=== PATIENT | female | born 2005 | race Two or more races ===

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

== ENCOUNTER 2023-12-03 16:20 | Emergency (ER) | payer OTHER, MEDICAID ==
[~2023-12-03] VITALS: Ht 172.7 cm; Wt 121.3 kg
[2023-12-03] MEDS: IPRATROPIUM BROM 0.5 MG/2.5ML INH SOL NEB ONE (16:37)
[2023-12-03] MEDS: ALBUTEROL SULF 2.5 MG/0.5ML(0.5%) NEB SOLN NEB ONE (16:37)
[2023-12-03 16:52] LABS: Basophils # (auto) 0.1 10 ^3/uL (0-0.2); Basophils % (auto) 0.4 % (0.0-2.0); Eosinophils % (auto) 5.4 % (0.0-7.0); Hematocrit 44.5 % (36.0-46.0); Hemoglobin 15.4 g/dL (12.2-16.2); Lymphocytes # (auto) 2.4 10 ^3/uL (0.4-5.4); Mean Corpuscular Hemoglobin 31.1 pg (28.0-32.0); Mean Corpuscular Hgb Conc. 34.6 g/dL (32.0-36.0); Mean Corpuscular Volume 89.9 fL (80.0-100.0); Monocytes # (auto) 0.9 10 ^3/uL (0-1.3); Neutrophils # (auto) 13.8 10 ^3/uL (1.6-8.6); Neutrophils % (auto) 76.2 % (37.0-80.0); Red Blood Cells 4.95 10^6/uL (4.0-5.20); Red Cell Distribution Width 13.1 % (11.8-14.3); White Blood Cell 18.1 10^3/uL (4.4-10.8)
[2023-12-03 17:09] LABS: Alanine Aminotransferase 45 U/L (7-40); Alkaline Phosphatase 67 U/L (46-116); Anion Gap 7 (5-15); Aspartate Aminotransferase 26 U/L (13-40); Blood Urea Nitrogen 10 mg/dL (9-23); Calcium 10.5 mg/dL (8.7-10.4); Carbon Dioxide 26 mmol/L (20-30); Chloride 105 mmol/L (98-107); Glucose 90 mg/dL (74-106); Magnesium 1.9 mg/dL (1.6-2.6); Potassium 4.3 mmol/L (3.5-5.1); Sodium 138 mmol/L (136-145)
[2023-12-03 17:10] LABS: Bilirubin, Total 0.7 mg/dL (0.2-1.0); Total Protein 8.4 g/dL (5.7-8.2)
[2023-12-03 17:13] LABS: INR 1.04 (0.9-1.15); Partial Thromboplastin Time 31.9 SEC (24.5-34.5)
[2023-12-03] MEDS ORDERED: METH4PAK PO (17:27)
[2023-12-03] MEDS ORDERED: AUG875T PO (17:27)
[2023-12-03 18:00] VITALS: BP 132/95; PULSE 100; RESP 17; TEMP 98.3; O2SAT 95
== END 2023-12-03 18:02 | disposition home or self-care (01) ==
LOC: ER 16:20
DX: J45.901 Unspecified asthma with (acute) exacerbation (principal); R10.2 Pelvic and perineal pain; F12.90 Cannabis use, unspecified, uncomplicated
CPT/HCPCS: 36415; 71045; 80053; 83735; 83880; 84484; 84702; 85025; 85610; 85730; 93005; 94640; 99285; J7644